=== PATIENT | male | born 1990 | race Caucasian/White ===

== ENCOUNTER 2019-12-07 09:23 | Emergency (ER) | payer BC, SELFPAY ==
[2019-12-07 09:25] VITALS: BP 138/108; PULSE 81; RESP 18; TEMP 36.6; O2SAT 100; BMI 41.8
--- NOTE | 2019-12-07 09:32 | CT_ITS ---
STUDY: CT ABDOMEN AND PELVIS WITHOUT CONTRAST REASON FOR EXAM: Male, 29 years old. LEFT FLANK PAIN, HEMATURIA, HX [place] RADIATION DOSAGE (If Supplied By Facility): CTDIvol = ( 24.09 ) mGy, DLP = ( 1378.06 ) mGycm TECHNIQUE: Transaxial images were obtained from the dome of the diaphragm to the symphysis pubis without oral contrast, and without intravenous contrast. Sagittal and coronal images were reconstructed. Individualized dose optimization techniques were used for this CT. COMPARISON: None. FINDINGS: The visualized lung bases are unremarkable. The visualized portions of the heart are within normal limits. There is decreased attenuation of the liver consistent with steatosis. Normal gallbladder and extrahepatic biliary system. Normal spleen. Normal pancreas. Normal bilateral adrenal glands. Normal right kidney. Normal left kidney. There is a small hiatal hernia. Normal small intestine. Normal colon. The appendix is visualized and appears normal. Normal abdominal aorta. Normal inferior vena cava. There is borderline retroperitoneal lymphadenopathy with enlarged nodes no greater than 10mm in the short axis diameter. A 2 mm calculus is seen at the base of the bladder on the left side just distal to the ureterovesical junction suggestive of a recently passed left ureteral stone. There is a small umbilical hernia containing fat. Small bilateral inguinal hernias containing fat. Normal osseous structures. CT/Abdomen/Pelvis without Cont IMPRESSION: Findings suggestive of a 2 mm recently passed left ureteral calculus which lies along the left side of the bladder just distal to the left ureterovesical junction. Fatty infiltration of the liver. Small bilateral inguinal hernias containing fat. Electronically Signed: Dre Hoffman, at 10:56 EDT , Service support ,
--- NOTE | 2019-12-07 09:32 | ED.VIS.GEN ---
History of Present Illness Chief Complaint: Flank Pain Informant: Patient Onset: Today Context: Sudden Onset Timing: Continuous Current Severity: Moderate Maximum Severity: Severe Narrative: The patient is a 29-year-old male with medical history significant for hypertension the presents to the emergency department with left-sided flank pain. Patient states that he does have history of kidney stone. He states that started early this morning. He states he took 2 Tylenol, but the pain persisted. He then took 1 Vicodin. He states he is had 2 episode of emesis. The pain does radiate into his left lower quadrant. He denies any fevers. He states normally, if he can stay on top of his pain, he is able to pass them without issue. He has never required lithotripsy or stenting. He states this is very similar pain he has had in the past with his kidney stones. Prior similar symptoms: Yes Recent Illness/Hospitalization: No Past Medical History - Allergies and Home Meds Allergies/Adverse Reactions: Allergies No Known Allergies Allergy (Verified 12/07/19 09:23) Primary Care Physician: João Farfan MD [Primary Care Provider] - Prior records reviewed: Yes Past Medical History: - - Hypertension Surgical History: noncontributory Lives: With Family Smoking Status: Never smoker Review of Systems General: Denies: Chills, Fever, Sweats Eyes: Denies: Visual changes - bilaterally, Diplopia ENT: Denies: Rhinorrhea, Sore throat Cardiovascular: Denies: Chest pain, Palpitations Respiratory: Denies: Dyspnea, Cough, Dyspnea on exertion Gastrointestinal: Reports: Nausea, Vomiting. Denies: Abdominal pain, Diarrhea, Melena, Hematochezia Genitourinary: Denies: Dysuria, Hematuria, Frequency Musculoskeletal: Reports: Back pain. Denies: Extremity Pain Skin: Denies: Rash, Wounds Neurological: Denies: Headache, Weakness, Numbness Physical Exam Vital Signs/Narrative: Vital Signs Temp Pulse Resp BP Pulse Ox 12/07/19 09:25 97.9 F 81 18 138/108 H 100 Inital Vital Signs reviewed: Yes General: Well nourished, Well developed, No Acute Distress Head: Normocephalic, Atraumatic Eyes: Perrl, EOMI ENT: Moist mucous membranes, No rhinorrhea Neck: Supple, Nontender Cardiovascular: Regular rate, Regular rhythm, No murmurs Respiratory: No distress, CTA bilaterally, Chest nontender Abdomen: Soft, Nontender, Nondistended, Normal bowel sounds Back: Normal Inspection, CVA tenderness Extremities: Nontender, No edema Skin: Normal color, No rash Neurological: Alert, Oriented x3, Cranial nerves II-XII grossly intact, Normal Strength, Normal Sensation Psychological: Normal affect, Normal Mood Diagnostic/Tx/Re-eval Clinical Impression(s) from Imaging Studies Abdomen/Pelvis CT 12/07/19 09:32 IMPRESSION: Findings suggestive of a 2 mm recently passed left ureteral calculus which lies along the left side of the bladder just distal to the left ureterovesical junction. Fatty infiltration of the liver. Small bilateral inguinal hernias containing fat. Electronically Signed: Dre Yasmin, at 10:56 EDT , Service support , Abnormal Lab Results 12/07/19 12/07/19 10:16 10:16 WBC 4.7 RBC 5.12 Hgb 14.1 Hct 42.7 MCV 83.4 MCH 27.5 MCHC 33.0 RDW Std Deviation 39.4 RDW Coeff of Natalia 13.1 Plt Count 213 MPV 10.5 Immature Gran % (Auto) 0.200 Neut % (Auto) 68.9 Lymph % (Auto) 23.1 [place] % (Auto) 6.8 Eos % (Auto) 0.6 Baso % (Auto) 0.4 Absolute Neuts (auto) 3.2 Absolute Lymphs (auto) 1.08 Nucleated RBC % 0 Sodium 140 Potassium 4.1 Chloride 108 H Carbon Dioxide 29.0 Anion Gap 3 L BUN 14 Creatinine 0.95 Estim Creat Clear Calc 128.49 Est GFR (MDRD) Af Amer 119 Est GFR (MDRD) Non-Af 99 BUN/Creatinine Ratio 14.7 Glucose 137 H Calcium 9.0 - Medical Decision Making The patient presents with sudden onset flank pain. He does have a history of kidney stones. He was nauseated and very uncomfortable. IV was ordered. Prior to having IV placed, he was pain-free. Screen labs obtained were unremarkable. Patient was given fluids and Toradol. He underwent CT imaging. It does show evidence of recently passed 2 mm stone within the bladder. The patient is now resting comfortably. He was counseled on urine straining and appropriate outpatient follow-up. He will be discharged home. Impression 1. 2 mm left urolithiasis-passed ED Disposition - Plan for ED Patient: Instructions: ED RENAL STONE Passed Referrals: João Farfan MD [Primary Care Provider] -
[2019-12-07] MEDS: Ketorolac 30 MG/ML Syringe IV (10:11)
[2019-12-07] MEDS: 0.9% Normal Saline 1,000 ML 250 ML IV (10:12)
[2019-12-07 10:24] VITALS: BP 138/108; PULSE 81; RESP 18; TEMP 36.6; O2SAT 100
[2019-12-07 10:30] LABS: Absolute Lymphocyte Count 1.08 X10^3/uL (0.83-4.51); Absolute Neutrophil Count 3.2 X10^3/uL (2.0-7.7); Basophil# 0.02 X10^3/uL; Basophil% 0.4 % (0-1); Eosinophil# 0.03 X10^3/uL; Eosinophils% 0.6 % (0-5); Hematocrit 42.7 % (40-54); Hemoglobin 14.1 g/dL (13.0-16.5); Lymphocyte # 1.08 X10^3/ul (4.0); Lymphocyte % 23.1 % (19-41); Mean Corpuscular Hgb 27.5 pg (27.0-32.0); Mean Corpuscular Volume 83.4 fL (80-94); Mean Platelet Vol. 10.5 fl (6.2-12.0); Monocyte# 0.32 X10^3/uL; Monocyte% 6.8 % (0-10); NRBC Flagged by Analyzer 0 % (0-5); Neutrophil # 3.22 X10^3/uL (2.7-7.7); Neutrophil % 68.9 % (47-70); Platelet Count 213 K/mm3 (150-450); RBC Distribution Width CV 13.1 % (11.6-14.6); RBC Distribution Width SD 39.4 fl (35.1-43.9); Red Blood Count 5.12 M/mm3 (4.6-6.2); White Blood Count 4.7 K/mm3 (4.4-11.0)
[2019-12-07 10:41] LABS: Anion Gap 3 (5-15); BUN 14 mg/dL (7-18); BUN/Creat Ratio 14.7 RATIO (10-20); Chloride 108 mmol/L (98-107); Creatinine, Serum 0.95 mg/dL (0.70-1.30); EST Glomerular Filtration Rate 99 mL/min (>60); Est Glom Filt Rate - Afr Amer 119 mL/min (>60); Estimated Creatinine Clearance 128.49 ml/min; Glucose 137 mg/dL (74-106); Potassium 4.1 mmol/L (3.5-5.1); Sodium Level 140 mmol/L (136-145)
[2019-12-07 11:16] VITALS: BP 132/90; PULSE 71; RESP 18; TEMP 36.1; O2SAT 99
[2019-12-07 11:17] VITALS: BP 132/90; PULSE 71; RESP 18; O2SAT 99
== END 2019-12-07 11:19 | disposition home or self-care (01) ==
LOC: ED 11:17
PROVIDERS: Emergency Provider Emergency Medicine; PCP Family Medicine
DX: N21.0 Calculus in bladder (principal); I10 Essential (primary) hypertension; Z87.442 Personal history of urinary calculi; K76.0 Fatty (change of) liver, not elsewhere classified; K40.20 Bilateral inguinal hernia, without obstruction or gangrene, not specified as recurrent
CPT/HCPCS: 74176; 80048; 85025; 96361; 96374; 99281; 99283; J2405

== ENCOUNTER → 2020-01-05 14:27 | Outpatient (CLI) | payer BC, SELFPAY ==
[2019-12-07 09:25] VITALS: BMI 41.8
== END ==
PROVIDERS: PCP Family Medicine; Referring Provider Obstetrics & Gynecology; Visit Provider Obstetrics & Gynecology
DX: Z14.1 Cystic fibrosis carrier (principal)
CPT/HCPCS: 36415

== ENCOUNTER 2020-03-22 10:49 | Emergency (ER) | payer BC, SELFPAY ==
[2020-03-22 10:50] VITALS: BP 151/102; PULSE 87; RESP 18; TEMP 36.1; O2SAT 97; BMI 43.4
--- NOTE | 2020-03-22 10:52 | ED.VIS.GEN ---
History of Present Illness Chief Complaint: Chest Pain Informant: Patient Narrative: 29-year-old male resenting with chest pain. He states has been having intermittent sharp pains for about a week. He states his pain is been constant since 4 PM yesterday. He denies diaphoresis, lightheadedness, nausea with this pain. He does state he feels more fatigued than he usually does. He denies any cardiac history. No history of DVT/PE. Past Medical History - Allergies and Home Meds Allergies/Adverse Reactions: Allergies No Known Allergies Allergy (Verified 03/22/20 10:50) Primary Care Physician: João Farfan MD [NON-STAFF] - Prior records reviewed: Yes Past Medical History: - - Hypertension, GERD Surgical History: noncontributory Lives: Spouse/ Significant Other Smoking Status: Never smoker Alcohol: None Drugs: None Review of Systems General: Reports: Malaise. Denies: Chills, Fever Eyes: Denies: Visual changes - bilaterally, Diplopia ENT: Denies: Rhinorrhea, Sore throat Cardiovascular: Reports: Chest pain. Denies: Palpitations, Heart racing Respiratory: Denies: Dyspnea, Cough, Sputum Gastrointestinal: Denies: Abdominal pain, Nausea, Vomiting, Diarrhea Genitourinary: Denies: Dysuria, Hematuria Musculoskeletal: Denies: Myalgias, Arthralgias Skin: Denies: Rash, Abscess Neurological: Denies: Headache, Weakness, Parasthesia, Numbness Psych: Denies: Depression, Anxiety Physical Exam Vital Signs/Narrative: Vital Signs Temp Pulse Resp BP Pulse Ox 03/22/20 10:50 97.0 F L 87 18 151/102 H 97 Inital Vital Signs reviewed: Yes General: Well nourished, No Acute Distress Head: Normocephalic, Atraumatic Eyes: Perrl, EOMI ENT: Moist mucous membranes, No rhinorrhea Cardiovascular: Regular rate, Regular rhythm Respiratory: No distress, CTA bilaterally Extremities: Nontender, No edema Skin: Normal color, No rash. Negative for: Cyanosis, Diaphoresis Neurological: Alert, Oriented x3, Cranial nerves II-XII grossly intact Psychological: Normal affect, Normal Mood Diagnostic/Tx/Re-eval Clinical Impression(s) from Imaging Studies Chest X-Ray 03/22/20 11:10 IMPRESSION: Normal x-ray examination of the chest. Electronically Signed: Dre Hoffman MD at 11:48 EST , Service support , Laboratory Data 03/22/20 03/22/20 11:30 11:30 WBC 5.9 RBC 5.17 Hgb 14.3 Hct 42.1 MCV 81.4 MCH 27.7 MCHC 34.0 RDW Std Deviation 36.3 RDW Coeff of Natalia 12.3 Plt Count 223 MPV 10.1 Immature Gran % (Auto) 0.300 Neut % (Auto) 59.9 Lymph % (Auto) 27.2 [place] % (Auto) 11.0 H Eos % (Auto) 0.8 Baso % (Auto) 0.8 Absolute Neuts (auto) 3.5 Absolute Lymphs (auto) 1.60 Nucleated RBC % 0 Sodium 139 Potassium 4.3 Chloride 104 Carbon Dioxide 30.0 Anion Gap 5 BUN 14 Creatinine 0.82 Estim Creat Clear Calc 144.58 Est GFR (MDRD) Af Amer 140 Est GFR (MDRD) Non-Af 116 BUN/Creatinine Ratio 17.0 Glucose 102 Calcium 8.7 Troponin I < 0.015 - Rhythm Strip Rhythm Strip: Sinus Rhythm Rate: 76 - EKG Follow-up EKG Interpretation: Sinus Rhythm, No Acute Injury Pattern - Medical Decision Making 29-year-old male presenting with chest pain which has been intermittent over the last week but also constant since 4 PM yesterday. EKG performed on arrival and interpreted by myself shows sinus rhythm without signs of ischemic changes. Chest x-ray is interpreted by myself shows no acute cardiopulmonary process. Patient is PERC negative. Patient's vital signs are stable and he is afebrile. Given patient's negative troponin and otherwise normal work-up with constant pain since 4 PM yesterday I do not believe he needs repeat EKG or troponin. Patient is counseled on these findings and he will him up with his primary care physician outpatient. Impression: 1. Chest pain ED Disposition - Plan for ED Patient: Disposition: Home or Assisted Living Instructions: ED Chest Pain, Uncertain Cause Referrals: João Farfan MD [NON-STAFF] -
--- NOTE | 2020-03-22 10:56 | NURSING ---
NO OLD EKGS
--- NOTE | 2020-03-22 11:00 | EKG12_ITS ---
Test Reason : CP Blood Pressure : / mmHG Vent. Rate : 076 BPM Atrial Rate : 076 BPM P-R Int : 134 ms QRS Dur : 086 ms QT Int : 384 ms P-R-T Axes : 017 -02 001 degrees QTc Int : 432 ms Normal sinus rhythm Minimal voltage criteria for LVH, may be normal variant Inferior infarct , age undetermined Abnormal ECG Confirmed by JAG PAREDES, FABIOLA ([id number]), map editor ALDO ESCAMILLA ([id number]) on 03/27/2020 11:03:07 AM Referred By: SANDRA Confirmed By:JORDIN RM MD
--- NOTE | 2020-03-22 11:10 | RAD_ITS ---
STUDY: X-RAY CHEST REASON FOR EXAM: Male, 29 years old. Chest pain x 1 week TECHNIQUE: Single AP portable view of the chest. COMPARISON: None. FINDINGS: EKG electrode are seen. The lungs are clear and expanded. There is no demonstrated pleural abnormality. Normal size heart. Normal mediastinum and jake. Normal visualized pulmonary arteries. Normal visualized aortic arch and descending thoracic aorta. Normal visualized thoracic spine. Normal visualized ribs, clavicles, and shoulders. There is no demonstrated abnormality of the visualized soft tissue structures of the upper abdomen. RAD/Chest 1 View (Portable) IMPRESSION: Normal x-ray examination of the chest. Electronically Signed: Dre Hoffman MD at 11:48 EST , Service support ,
[2020-03-22 11:40] VITALS: BP 139/99; PULSE 75; RESP 18; O2SAT 99
[2020-03-22 11:45] LABS: Absolute Neutrophil Count 3.5 X10^3/uL (2.0-7.7); Basophil# 0.05 X10^3/uL; Basophil% 0.8 % (0-1); Eosinophil# 0.05 X10^3/uL; Eosinophils% 0.8 % (0-5); Hematocrit 42.1 % (40-54); Hemoglobin 14.3 g/dL (13.0-16.5); Lymphocyte % 27.2 % (19-41); Mean Corpuscular Hgb 27.7 pg (27.0-32.0); Mean Corpuscular Volume 81.4 fL (80-94); Mean Platelet Vol. 10.1 fl (6.2-12.0); Monocyte# 0.65 X10^3/uL; NRBC Flagged by Analyzer 0 % (0-5); Neutrophil # 3.52 X10^3/uL (2.7-7.7); Neutrophil % 59.9 % (47-70); Platelet Count 223 K/mm3 (150-450); RBC Distribution Width CV 12.3 % (11.6-14.6); RBC Distribution Width SD 36.3 fl (35.1-43.9); Red Blood Count 5.17 M/mm3 (4.6-6.2); White Blood Count 5.9 K/mm3 (4.4-11.0)
[2020-03-22 11:59] LABS: Anion Gap 5 (5-15); BUN 14 mg/dL (7-18); Calcium,Total 8.7 mg/dL (8.5-10.1); Chloride 104 mmol/L (98-107); Creatinine, Serum 0.82 mg/dL (0.70-1.30); EST Glomerular Filtration Rate 116 mL/min (>60); Est Glom Filt Rate - Afr Amer 140 mL/min (>60); Estimated Creatinine Clearance 144.58 ml/min; Glucose 102 mg/dL (74-106); Potassium 4.3 mmol/L (3.5-5.1); Sodium Level 139 mmol/L (136-145)
[2020-03-22 12:30] VITALS: BP 138/100; PULSE 71; RESP 22; O2SAT 98
[2020-03-22 13:42] VITALS: BP 140/84; PULSE 71; RESP 18
== END 2020-03-22 13:44 | disposition home or self-care (01) ==
PROVIDERS: Emergency Provider Student in an Organized Health Care Education/Training Program
DX: R07.9 Chest pain, unspecified (principal); I10 Essential (primary) hypertension; K21.9 Gastro-esophageal reflux disease without esophagitis; R53.83 Other fatigue
CPT/HCPCS: 71045; 80048; 84484; 85025; 93005; 99285; A4216

== ENCOUNTER 2021-08-03 18:37 | Emergency (ER) | payer BC, SELFPAY ==
[2021-08-03 18:38] VITALS: BP 104/72; PULSE 94; RESP 22; TEMP 36.6; O2SAT 97; BMI 43.5
[2021-08-03 18:57] VITALS: BP 146/98; PULSE 94; RESP 16; O2SAT 97
--- NOTE | 2021-08-03 19:16 | ED.VIS.BACK ---
HPI History of Present Illness Chief Complaint: Back Informant: patient Onset/Context/Timing Onset: Today Context: Sudden Onset Injury: twisting Timing: Continuous Quality: Sharp Location: Lumbar Worsened by: improves with Movement Relieved by: Nothing Associated Symptoms Associated Symptoms: Numbness, Tingling, Radiation to Right Leg and Radiation to Left Leg; Negative for Fever, Abdominal Pain, Dysuria, Unable to Ambulate, Unable to Transfer, Urinary Retention, Urinary Incontinence, Constipation and Fecal Incontinence Narrative Narrative: Patient presents with back pain that began earlier today. Patient states he twisted and felt a pop in his low back. Patient states he has a history of degenerative disc disease in his back. Patient states the pain is sharp. Patient states the pain radiates down both legs. Patient admits to some numbness and tingling in both legs. Patient states that the pain becomes severe and his legs want to give out on him because of the pain. Patient denies any radiation of the pain to his abdomen. Patient denies any bowel or bladder changes. Patient denies any saddle anesthesia. [facility] Medical History (Updated 08/03/21 @ 21:[address] Addi Valladares, ) Asthma DDD (degenerative disc disease) Degenerative disc disease, lumbar GERD (gastroesophageal reflux disease) Hypertension Kidney stones Migraines Neuropathy Non-alcoholic fatty liver disease Sinus tachycardia Sleep apnea Superior labrum kdvyuosp-ma-lydlxpyxy (SLAP) tear of left shoulder Home Medications cyclobenzaprine 10 mg PO DAILY 12/07/19 [History Last Taken Unknown] losartan 25 mg PO DAILY 12/07/19 [History Last Taken Unknown] metoprolol succinate 50 mg PO DAILY 12/07/19 [History Last Taken Unknown] omeprazole 20 mg PO DAILY 12/07/19 [History Last Taken Unknown] ascorbic acid (vitamin C) 1,000 mg PO DAILY 03/22/20 [History Last Taken Unknown] cetirizine 10 mg PO DAILY 03/22/20 [History Last Taken Unknown] cholecalciferol (vitamin D3) 2,000 unit PO DAILY 03/22/20 [History Last Taken Unknown] cyclobenzaprine 10 mg PO TID PRN #20 tablet 08/03/21 [Rx Last Taken Unknown] hydrocodone-acetaminophen 1 tab PO Q6H PRN PRN 3 Days #10 tablet 08/03/21 [Rx Last Taken Unknown] Allergy/AdvReac Type Severity Reaction Status Date / Time No Known Allergies Allergy Verified 08/03/21 18:38 Surgical History (Updated 08/03/21 @ 19:[address] Addi Valladares DO) Hx of shoulder surgery Social History Smoking Status: Never smoker ROS ROS ED Constitutional Constitutional ED: Denies chills or fever(s) Eyes Eyes: Denies blurry vision or change in vision ENT ENT ED: Denies rhinorrhea or sore throat Cardiovascular Cardiovascular: Denies chest pain or palpitations Respiratory/Chest Respiratory/Chest: Denies cough or dyspnea Gastrointestinal Gastrointestinal: Denies nausea or vomiting Genitourinary Genitourinary ED: Denies dysuria or hematuria Musculoskeletal Musculoskeletal: Reports back pain; Denies neck pain Integumentary Denies abscess or rash Neurologic Neurologic: Denies headache(s) or weakness Allergic/Immunologic Allergic/Immunologic ED: Denies mouth swelling or urticaria EXAM Physical Exam Const Vital Signs: 08/03/21 18:38 08/03/21 18:57 Temperature 98 F Temperature Source Temporal Pulse Rate 94 94 Respiratory Rate 22 H 16 Blood Pressure 104/72 146/98 H Blood Pressure Mean 82 114 Pulse Ox 97 97 Oxygen Delivery Method Room Air Room Air Positive well nourished, well developed and obese General Appearance ED: well developed and NAD Nutritional Appearance: obese HEENT Reports moist mucous membranes Neck supple and no JVD Resp normal respiratory effort and clear to auscultation bilaterally Cardio regular rate and regular rhythm GI normal to inspection, nondistended, normoactive bowel sounds, soft to palpation and non-tender Back/Spine Back/Spine Narrative: There is tenderness over the lower lumbar paraspinal muscles. Range of motion was limited in all motions of the lumbar spine secondary to pain. Strength is 5/5 in plantar flexion and dorsiflexion of the ankles bilaterally. Strength is 4/5 in flexion of the hips bilaterally. This is likely due to the pain. Sensation was intact to light touch bilaterally in the lower extremities. Lumbar Spine / Lower Back: ROM limited Extremity normal to inspection General Extremety ED: Negative for edema or tenderness General Extremity: Negative for edema Neuro oriented x3 and no sensory deficits noted Sensorium / Orientation: alert Motor Exam: strength 5/5 throughout Psych mental status grossly normal MDM MDM MDM Narrative Medical decision making narrative: Patient was given an injection of morphine and Toradol here. X-rays of the lumbar spine were obtained. There are 3 views. On my interpretation, there is no acute fracture or spondylolisthesis. Radiologist also interpreted the x-rays and agrees. On reevaluation, patient states his pain is improving. Patient was given prescriptions for [place] and Flexeril. Patient was instructed to use ice to the area. Patient was instructed to follow-up with his primary care physician in 3 to 5 days for further evaluation. Patient understood and was agreeable with the plan. All questions were answered. Radiography X-Ray: LS SPine, Read by ED Physician, Read by Radiologist, No Fracture and Normal Bony Alignment Diagnostic Testing: Clinical Impression(s) from Imaging Studies Lumbar Spine X-Ray 08/03/21 19:33 IMPRESSION: No evidence of lumbar spinal fracture or spondylolisthesis. Electronically Signed: David White DO at 20:30 EDT , Discharge Plan Triage Chief Complaint: Back ED Provider: Addi Valladares Dx/Rx/DC Orders Clinical Impression: Acute low back pain Instructions: ED Back Pain (Acute or Chronic), ED Back Sprain/Strain Prescriptions: New cyclobenzaprine [cyclobenzaprine] 10 MG tablet 10 mg PO TID PRN (Reason: Muscle Spasm) Qty: 20 RF: 0 hydrocodone-acetaminophen [hydrocodone-acetaminophen] 1 TABLET tablet 1 tab PO Q6H PRN PRN (Reason: Pain) 3 Days Qty: 10 RF: 0 No Action cyclobenzaprine 10 MG tablet 10 mg PO DAILY RF: 0 metoprolol succinate 50 MG tablet extended release 24 hr 50 mg PO DAILY RF: 0 losartan 25 MG tablet 25 mg PO DAILY RF: 0 omeprazole 20 MG capsule 20 mg PO DAILY RF: 0 ascorbic acid (vitamin C) 1,000 MG tablet 1,000 mg PO DAILY RF: 0 cetirizine 10 MG tablet 10 mg PO DAILY RF: 0 cholecalciferol (vitamin D3) 2,000 UNIT capsule 2,000 unit PO DAILY RF: 0 Referrals: LAURA LUKE [Other] - 3-5 Days Disposition Disposition: Home, Self Care
[2021-08-03] MEDS: Ketorolac 60 MG/2 ML Vial IM (19:26)
[2021-08-03] MEDS: Morphine 4 MG/ML Syringe IM (19:27)
--- NOTE | 2021-08-03 19:33 | RAD_ITS ---
INDICATION: Injury/Pain EXAMINATION/TECHNIQUE: X-RAY - XR Spine Lumbar 2 or 3 Views COMPARISON: None. FINDINGS: VERTEBRAE: Preserved vertebral body height. No fracture. No spondylolisthesis. Preservation of the normal lumbar lordosis. No significant facet arthropathy. DISCS: Minimal L4-5 and L5-S1 intervertebral disc height loss with no significant degenerative endplate changes. INCLUDED ABDOMEN: Included bowel gas pattern is non-obstructive. RAD/Lumbar Spine 2 or 3 Views IMPRESSION: No evidence of lumbar spinal fracture or spondylolisthesis. Electronically Signed: David White DO at 20:30 EDT ,
[2021-08-03 21:43] VITALS: PULSE 82; RESP 18; O2SAT 97
--- NOTE | 2021-08-03 22:03 | ED.RN ---
[id number] not happy that no body asked about their pharmacy of choice,but was okay that [facility] was it for efren.
--- NOTE | 2021-08-03 22:12 | ED.RN ---
upon discharge,pt voiced that he was going to [place] emergency room tonight for further evaluation,since his doctor is down there.
== END 2021-08-03 21:43 | disposition home or self-care (01) ==
PROVIDERS: Emergency Provider Emergency Medicine; Visit Provider Emergency Medicine
DX: M54.50 Low back pain, unspecified (principal); I10 Essential (primary) hypertension; R10.9 Unspecified abdominal pain; K21.9 Gastro-esophageal reflux disease without esophagitis; E66.9 Obesity, unspecified
CPT/HCPCS: 72100; 99282